=== PATIENT | male | born 1955 | race Caucasian/White ===

== ENCOUNTER 2022-05-31 17:49 | Inpatient (IN) | payer MEDICARE, OTHER ==
[~2022-05-31] VITALS: Ht 170.2 cm; Wt 98.9 kg
--- NOTE | 2022-05-31 18:00 | NUR ---
PATIENT ARRIVED WITH IV IN PLACE. 20G LAC
--- NOTE | 2022-05-31 18:15 | NUR ---
GENDER STUDIES PROFESSOR AT BEDSIDE
[2022-05-31 18:30] LABS: BASOPHILS # (AUTO) 0.1 K/uL (0.0-0.2); BASOPHILS % (AUTO) 0.6 % (0.0-2.0); EOSINOPHILS % (AUTO) 2.4 % (0.0-6.0); HEMATOCRIT 45 % (39-51); HEMOGLOBIN 14.6 g/dL (13.5-17.5); LYMPHOCYTES # (AUTO) 2.6 K/uL (0.8-4.8); LYMPHOCYTES % (AUTO) 26.2 % (20.0-44.0); MEAN CORPUSCULAR HGB CONC 33 g/dl (31.0-36.0); MEAN CORPUSCULAR VOLUME 88 fL (80-96); MONOCYTES # (AUTO) 0.8 K/uL (0.1-1.30); MONOCYTES % (AUTO) 7.6 % (2.0-12.0); NEUTROPHILS # (AUTO) 6.4 K/uL (1.8-8.9); NEUTROPHILS % (AUTO) 63.2 % (43.0-81.0); PLATELET COUNT (AUTO) 243 K/uL (150-450); RED BLOOD CELL COUNT(AUTO) 5.08 MIL/uL (4.5-6.0); WHITE BLOOD COUNT (AUTO) 10.1 K/uL (4.3-11.0)
--- NOTE | 2022-05-31 19:21 | NUR ---
COVID TEST COLLECTED AND SENT
--- NOTE | 2022-05-31 19:31 | NUR ---
[phone] Son's number (Liz)
[2022-05-31 20:26] LABS: ALANINE AMINOTRANSFERASE 22 U/L (12-78); ALBUMIN 3.9 g/dL (3.4-5.0); ALKALINE PHOSPHATASE 75 U/L (46-116); ASPARTATE AMINOTRANSFERASE 12 U/L (15-37); BILIRUBIN,DIRECT 0.1 mg/dL (0.0-0.2); BILIRUBIN,TOTAL 0.7 mg/dL (0.2-1.0); CALCIUM, SERUM 9.4 mg/dL (8.5-10.1); CARBON DIOXIDE 25 mmol/L (21-32); CHLORIDE 105 mmol/L (98-107); CREATININE 0.9 mg/dL (0.6-1.3); GLUCOSE 110 mg/dL (74-106); POTASSIUM 3.5 mmol/L (3.5-5.1); SODIUM SERUM 140 mmol/L (136-145); TOTAL PROTEIN, SERUM 7.5 g/dL (6.4-8.2); UREA NITROGEN, BLOOD 21 mg/dL (7-18)
[2022-05-31] MEDS ORDERED: ACETAMINOPHEN 325 MG TABLET PO PRN (20:30)
[2022-05-31] MEDS ORDERED: ONDANSETRON HCL/PF 4 MG/2 ML VIAL IVP PRN (20:30)
--- NOTE | 2022-05-31 21:37 | NUR ---
REPORT GIVEN TO W[place] PAUL FOR FAISAL
[2022-05-31] MEDS ORDERED: ATORVASTATIN 10 MG TABLET PO SCH (22:00)
[2022-05-31 22:30] VITALS: BP 167/98
[2022-05-31] MEDS ORDERED: KETOROLAC TROMETHAMINE INJ 30 MG/ML VIAL IV ONE (22:30)
[2022-06-01] VITALS: BP 142/87
--- NOTE | 2022-06-01 00:12 | NUR ---
POWDER BLENDER OPENING NOTES ADMITTED A 66 YEARS OLD MALE, A/O X 4 PERSIAN SPEAKING UNABLE TO UNDERSTAND LATVI[place]. TRANSFERRED VIA GURNEY. TRANSFER TO BED SAFELY AND SECURED. VITAL SIGNS FOLLOWS BP:140/87, RR:20M MD:62, TEMP:98, O2 SAT:98%. SKIN ASSESSMENT DONE AND RECORDED NO WOUND NOTED. HISTORY TAKEN AND RECORDED.WITH IV ACCESS AT LEFT AC #20G PATENT AND INTACT. NO CHEST PAIN OR DISCOMFORT NOTED AT THIS TIME VERBALIZED CONCERNS, ADMISSION ORDER CARRIED OUT. ATTENDING PHYSICIAN MADE AWARE. PM CARE RENDERED, ALL DUE MEDICATIONS GIVEN. KEPT BED ON LOWER LOCK POSITION, KEPT SIDE RAILS UP X 2 ALL THE TIME, KEPT CALL LIGHT WITHIN AT REACH, SAFETY MEASURES MAINTAINED. WILL CONTINUE TO MONITOR
[2022-06-01 04:00] VITALS: BP 129/80
--- NOTE | 2022-06-01 06:26 | NUR ---
GALVANIZING POT RUNNER CLOSING NOTES PATIENT IS IN BED, A/O X 4 BRUNE[place] SPEAKING; ON MODERATE HIGH BACK REST POSITION. NO CHEST PAIN OR DISTRESS NOTED AT THIS TIME. WITH IV ACCESS AT LEFT AC #20G PATENT AND INTACT. NO PAIN OR DISCOMFORT NOTED AT THIS TIME, ALL DUE MEDICATIONS GIVEN, ALL NEEDS ATTENDED. ATTACHED TO TELE MONITORING DEVICE, PATIENT IS CONTINENT AND ABLE TO GO TO THE BATHROOM. KEPT BED ON LOWER LOCKED POSITION , KEPT SIDE RAILS UP X 2 ALL THE TIME, PM CARE RENDERED, KEPT CALL LIGHT WITHIN AT REACH. ALL DUE MEDICATIONS GIVEN. WILL ENDORSED TO NEXT SHIFT FOR FAISAL.
[2022-06-01 07:00] LABS: BASOPHILS # (AUTO) 0.1 K/uL (0.0-0.2); EOSINOPHILS % (AUTO) 2.8 % (0.0-6.0); HEMATOCRIT 44 % (39-51); LYMPHOCYTES # (AUTO) 2.3 K/uL (0.8-4.8); LYMPHOCYTES % (AUTO) 27.7 % (20.0-44.0); MEAN CORPUSCULAR HGB CONC 34 g/dl (31.0-36.0); MEAN CORPUSCULAR VOLUME 89 fL (80-96); MONOCYTES # (AUTO) 0.8 K/uL (0.1-1.30); MONOCYTES % (AUTO) 9.3 % (2.0-12.0); NEUTROPHILS # (AUTO) 4.9 K/uL (1.8-8.9); NEUTROPHILS % (AUTO) 59.2 % (43.0-81.0); PLATELET COUNT (AUTO) 242 K/uL (150-450); RED BLOOD CELL COUNT(AUTO) 4.99 MIL/uL (4.5-6.0); WHITE BLOOD COUNT (AUTO) 8.3 K/uL (4.3-11.0)
--- NOTE | 2022-06-01 07:00 | NUR ---
PEACH GROWER OPENING NOTES: RECEIVED PT IN BED AWAKE, ALERT AND ORIENTED X 4 CZECH SPEAKING. NO SOB OR CARDIAC DISTRESS NOTED. DENIES PAIN AT THIS TIME. ON ROOM AIR AND TOLERATING WELL. ON SOFT WORK WRAPPER LAYER AND EXAMINER WITH CURRENT READING SINUS RHYTHM AT 72 BPM.IV ACCESS ON RAC GAUGE 20, PATENT,INTACT AND SALINE LOCKED. SAFETY MEASURES MAINTAINED: BED LOCKED AND IN LOWEST POSITION SIDE RAILS UP X2.
[2022-06-01 07:10] LABS: CALCIUM, SERUM 9.3 mg/dL (8.5-10.1); CREATININE 0.9 mg/dL (0.6-1.3); MAGNESIUM 2.3 mg/dL (1.8-2.4); PHOSPHORUS 4.5 mg/dL (2.5-4.9); POTASSIUM 3.6 mmol/L (3.5-5.1)
[2022-06-01] MEDS ORDERED: PANTOPRAZOLE 40 MG TABLET.DR PO SCH (07:30)
[2022-06-01 08:00] VITALS: BP 148/78
[2022-06-01] MEDS ORDERED: ASPIRIN 81 MG TAB.CHEW PO SCH (09:00)
[2022-06-01] MEDS ORDERED: ATOR10TA PO (11:20)
[2022-06-01] MEDS ORDERED: MECL-68 PO (11:20)
[2022-06-01] MEDS ORDERED: DICL100G34 TD (11:20)
[2022-06-01] MEDS ORDERED: AMLO-213 PO (11:20)
[2022-06-01] MEDS ORDERED: ASPI-1420 PO (11:20)
[2022-06-01] MEDS ORDERED: OMEP20CA15 PO (11:20)
[2022-06-01] MEDS ORDERED: ERGO500093 PO (11:20)
[2022-06-01] MEDS ORDERED: NAPR-1192 PO (11:20)
[2022-06-01 12:00] VITALS: BP 162/94
[2022-06-01 16:00] VITALS: BP 157/91
[2022-06-01] MEDS ORDERED: VALSARTAN 80 MG TABLET PO SCH (17:00)
[2022-06-01 17:13] VITALS: BP 157/91
--- NOTE | 2022-06-01 18:06 | NUR ---
PLOW HOLDER NOTES: PATIENT DC HOME TODAY WITH FAMILY,PT AA/OX4 AND ABLE TO MAKE NEEDS KNOWN. NO SOB OR CARDIAC DISTRESS NOTED. DISCHARGE INSTRUCTIONS AND PACKET GIVEN TO PT AND VERBALIZED UNDERSTANDING. BELONGINGS TAKEN WITH THE PATIENT. REMINDED PT TO FOLLOW UP WITH PCP AND HOBBING PRESS OPERATOR. REMOVED TELE MONITOR AND HANDED TO EQUIPMENT OPERATION INSTRUCTOR LAURA.REMOVED IV ACCESS AND IDENTIFICATION BAND. PT LEFT THE UNIT AMBULATORY AND STABLE.
[2022-06-01] MEDS ORDERED: ENOXAPARIN SODIUM 40 MG/0.4 ML DISP.SYRIN SQ SCH (21:00)
[2022-06-01] MEDS ORDERED: ATORVASTATIN 40 MG TABLET PO SCH (22:00)
[2022-06-02] MEDS ORDERED: OMEPRAZOLE 20 MG CAPSULE.DR PO SCH (07:30)
[2022-06-02] MEDS ORDERED: AMLODIPINE BESYLATE 10 MG TABLET PO SCH (09:00)
[2022-06-02] MEDS ORDERED: ASPIRIN EC 81 MG TABLET.DR PO SCH (09:00)
[2022-06-02] MEDS ORDERED: ATOR10TA PO (11:34)
[2022-06-02] MEDS ORDERED: VALS80TA31 PO (11:34)
== END 2022-06-01 18:05 | disposition home or self-care (01) | DRG 311 ==
LOC: ER 18:37 → TELE 21:27
PROVIDERS: ADMIT Nurse Practitioner Acute Care; ATTEND Internal Medicine
DX: I20.0 Unstable angina (principal); D68.59 Other primary thrombophilia; I10 Essential (primary) hypertension; E66.01 Morbid (severe) obesity due to excess calories; Z68.34 Body mass index [BMI] 34.0-34.9, adult; Z20.822 Contact with and (suspected) exposure to COVID-19
CPT/HCPCS: 36415; 71045-TC; 72125-TC; 80048-TC; 80061-TC; 80076-TC; 83735-TC; 83880; 84100-TC; 84484-TC; 85025-TC; 87081-TC; 93307-TC; C9803; G0378; J1885; J7030